=== PATIENT | male | born 1975 | race Caucasian/White ===

== ENCOUNTER 2017-05-31 11:05 | Emergency (ER) | payer MEDICAID ==
[2017-05-31] MEDS ORDERED: OXYCODONE/APAP 5/325 TAB PO ONE (12:39)
--- NOTE | 2017-05-31 12:39 | EDPHY ---
H & P Stated Complaint: back/LLE pain Time Seen by Provider: 05/31/17 12:26 HPI/ROS: CHIEF COMPLAINT: Acute low back pain HISTORY OF PRESENT ILLNESS: 41-year-old male took the bus to the ER complaining of 3 days of left low back pain and left buttock pain which started after she was moving heavy boxes up and down multiple stairs 4 days ago. He has describe intermittent pain to his left lateral anterior thigh as well as left inguinal region. No direct trauma or fall. No incontinence or retention. No genitourinary complaints. No flank pain. No Abdominal pain. No bowel movement disorder, no pain with defecation. REVIEW OF SYSTEMS: A ten point review of systems was performed and is negative with the exception of the items mentioned in the HPI PAST MEDICAL & SURGICAL HISTORY: No pertinent medical or surgical history SOCIAL HISTORY: No history of IV drug use. Moved here recently from [place]. PHYSICAL EXAM (Prior to examination, patient consented to physical exam, hands were washed and my usual and customary physical exam procedures followed) 1) GENERAL: Well-developed, well-nourished, alert and oriented. Appears to be in no acute distress. 2) HEAD: Normocephalic, atraumatic 3) HEENT: Pupils equal, round, reactive to light bilaterally. Sclera anicteric. Nasopharynx, oropharynx, clear, no lesions. 4) NECK: Full range of motion, no meningeal signs. 5) LUNGS: Clear auscultation bilaterally, no wheezes, no rhonchi, no retractions. 6) HEART: Regular rate and rhythm, no murmur, no heave, no gallop. 7) ABDOMEN: No guarding, no rebound, no focal tenderness, negative McBurney's, negative Ramirez's, negative Rovsing's, negative peritoneal sign, 8) MUSCULOSKELETAL: No pain with axial loading of the left acetabulum. No fluctuance. Soft compartments of the left lower extremity, no discoloration. Moving all extremities, no focal areas of tenderness, no obvious trauma. No peripheral edema or discoloration. Negative Homans no palpable cord 9) BACK: tender to palpation left lumbar paraspinous muscle, tender to palpation left SI joint. No CVA tenderness, no midline vertebral tenderness, no fluctuance, no step-off, no obvious trauma, no visual or palpable abnormality. Positive straight leg lift test on the left lower extremity. Patella, Achilles reflexes intact to bilateral strength 5/5 10) SKIN: No rash, no petechiae. 11) NEURO: Awake, alert, and oriented to person, place and time. Answers questions appropriately. There were no obvious focal neurologic abnormalities. No cerebellar dysfunction. Normal steady gait. Upper and lower extremities bilaterally with strength 5 / 5, reflexes 2+.. DIFFERENTIAL DIAGNOSIS: In no particular order, including but not limited to, fracture, sprain/strain, cauda equina, spinal infectious etiology, septic arthritis MEDICAL DECISION MAKING Lower index of suspicion for cauda equina, epidural abscess, epidural hematoma, lumbar myositis, diskitis, as the patient is neurologically intact in the lower extremities, has patella and Achilles reflexes intact and equal bilaterally, has no neurologic deficits, no incontinence, no retention, no midline pain, no fluctuance, afebrile, no flulike symptoms. Pain may be secondary to muscular strain, may be secondary to discogenic etiology. At this point I do not identify definitive indication for emergent MRI of the lumbar spine, however patient may necessitate this on an outpatient basis. He does describe the pain radiating to his left inguinal region intermittently with no palpable abnormality of the abdomen or of the left inguinal region. He has no pain with axial loading of the acetabulum. We did discuss possibility of septic arthritis of the left hip which I think is less than likely at this time given his current presenting signs and symptoms which I do not think are consistent with acute septic arthritis. Patient given acute back pain precautions. Patient verbalizes understanding of discharge instructions. I believe him to be competent decision-makers. All questions and concerns have been addressed by me. Ample opportunity for questions have been provided . The patient understands that this diagnosis is provisional and can never be 100% accurate. Usual and customary warnings were given concerning the clinical impression and all the patient's questions were answered. The patient was instructed to return to the emergency department should her symptoms worsen or return, or develop any new symptoms, otherwise to followup as directed in discharge instructions. - Personal History Current Tetanus/Diphtheria Vaccine: Yes Current Tetanus Diphtheria and Acellular Pertussis (TDAP): Yes - Medical/Surgical History Hx Asthma: Yes Hx Chronic Respiratory Disease: No Hx Diabetes: No Hx Cardiac Disease: No Hx Renal Disease: No Hx Cirrhosis: No Hx Alcoholism: Yes Hx HIV/AIDS: No Hx Splenectomy or Spleen Trauma: No Other PMH: asthma - Social History Smoking Status: Former smoker Constitutional: Initial Vital Signs Temperature (C) 36.6 C 05/31/17 11:15 Heart Rate 78 05/31/17 11:15 Respiratory Rate 16 05/31/17 11:15 Blood Pressure 130/95 H 05/31/17 11:15 O2 Sat (%) 98 05/31/17 11:15 O2 Delivery Mode Room Air Allergies/Adverse Reactions: No Known Allergies Allergy (Unverified 05/31/17 11:15) Home Medications: Medication Instructions Recorded Hydrocodone/APAP 5/325 [Clayton 1 tab PO Q6 PRN #10 tab 05/31/17 5/325 (RX)] Ibuprofen 05/31/17 methylPREDNISolone [Medrol Dose 4 mg PO DAILY #1 ea 05/31/17 Nicolas] Medical Decision Making - Diagnostics Imaging Results: Imaging Impressions Hip X-Ray 05/31/17 12:39 Impression: No evidence for acute osseous abnormality left hip. 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 No significant joint narrowing. Lumbar Spine X-Ray 05/31/17 12:39 Impression: Mild early degenerative disk and degenerative joint disease of L4- L5 and L5-S1. No evidence for fracture. Images reviewed by myself - Data Points Medications Given: Discontinued Medications Oxycodone/Acetaminophen (Percocet 5/325) 1 tab PO EDNOW ONE Stop: 05/31/17 12:40 Last Admin: 05/31/17 12:47 Dose: 1 tab Departure - Departure Disposition: Home, Routine, Self-Care Clinical Impression: Low back pain Qualifiers: Chronicity: acute Back pain laterality: left Sciatica presence: with sciatica Sciatica laterality: sciatica of left side Qualified Code(s): M54.42 - Lumbago with sciatica, left side Condition: Good Instructions: Low Back Strain (ED) Additional Instructions: Seek medical attention if you develop new or worsening pain, if you develop bladder or bowel dysfunction, numbness around your perineum, foot drop, or any other symptoms that concern you. Referrals: Bryanna Dc MD [[facility] Primary Care Provider] - As per Instructions Prescriptions: Hydrocodone/APAP 5/325 [Clayton 5/325 (RX)] 1 tab PO Q6 PRN #10 tab PRN Reason: Pain, Severe methylPREDNISolone [Medrol Dose Nicolas] 4 mg PO DAILY #1 ea
[2017-05-31 13:51] VITALS: BP 136/84
== END 2017-05-31 13:52 | disposition home or self-care (01) ==
DX: M54.42 Lumbago with sciatica, left side (principal); J45.909 Unspecified asthma, uncomplicated; Z87.891 Personal history of nicotine dependence